=== PATIENT | male | born 1980 | race African-American/Black ===

== ENCOUNTER 2021-12-03 17:33 | Inpatient (IN) | payer MEDICAID ==
[~2021-12-03] VITALS: Ht 172.7 cm; Wt 72.6 kg
[2021-12-03] MEDS ORDERED: ASPI81TA31 PO (18:10)
[2021-12-03] MEDS ORDERED: ATOR40TA PO (18:10)
[2021-12-03] MEDS ORDERED: ASPIRIN 81 MG TAB.CHEW PO ONE (18:30)
[2021-12-03] MEDS ORDERED: ASPIRIN 81 MG TAB.CHEW ONE (18:34)
--- NOTE | 2021-12-03 18:34 | NUR ---
seen by Dr. Snyder and evaluated.
[2021-12-03 18:54] LABS: HEMATOCRIT 37.2 % (36.7-47.1); MEAN CORPUSCULAR HEMOGLOBIN 30.8 uug (23.8-33.4); MEAN CORPUSCULAR VOLUME 91.8 fL (73.0-96.2); PLATELET COUNT (AUTO) 171 K/uL (152-348)
[2021-12-03 19:14] LABS: CREATININE 1.2 mg/dL (0.6-1.3); POTASSIUM 3.9 mmol/L (3.5-5.1)
[2021-12-03 19:26] LABS: BILIRUBIN,TOTAL 0.4 mg/dL (0.2-1.0)
--- NOTE | 2021-12-03 19:34 | NUR ---
DR. Bennett was in to see the pt. pt denies c/p at this time.
[2021-12-03 19:48] LABS: BAND % (MANUAL) 2 % (0-10); EOSINOPHILS % (MANUAL) 4 % (0-8); LYMPHOCYTES % (MANUAL) 26 % (20-40); MONOCYTES % (MANUAL) 8 % (2-10); NEUTROPHILS % (MANUAL) 60 % (42-75)
--- NOTE | 2021-12-03 20:27 | NUR ---
pt go to cat scan.
--- NOTE | 2021-12-03 20:38 | NUR ---
pt returned from cat scan.
--- NOTE | 2021-12-03 22:22 | NUR ---
pt ambulated to the bathroom without assist. pt denies sob or pain.
--- NOTE | 2021-12-04 00:23 | NUR ---
call to [facility] panel Prem Hobson NP.
--- NOTE | 2021-12-04 00:49 | NUR ---
second call to epic panel dr. tolbert.
--- NOTE | 2021-12-04 01:00 | NUR ---
mary tolbert called back for admission.
[2021-12-04] MEDS ORDERED: ENOXAPARIN SODIUM 40 MG/0.4 ML DISP.SYRIN SQ SCH (01:15)
[2021-12-04] MEDS ORDERED: ACETAMINOPHEN 325 MG TABLET PO PRN (01:15)
[2021-12-04] MEDS ORDERED: MAGNESIUM HYDROXIDE 30 ML LIQUID UDC PO PRN (01:15)
[2021-12-04] MEDS ORDERED: NITROGLYCERIN 0.4 MG/TAB BOTTLE SL ONE (01:15)
[2021-12-04] MEDS ORDERED: MORPHINE SULFATE 2 MG/1 ML DISP.SYRIN IV PRN (01:15)
[2021-12-04] MEDS ORDERED: ONDANSETRON 4 MG/2 ML VIAL IV PRN (01:15)
[2021-12-04] MEDS ORDERED: REMEDY ESSENTIAL ZINC PASTE 113 GM TP PRN (01:15)
[2021-12-04] MEDS ORDERED: ENOXAPARIN SODIUM 40 MG/0.4 ML DISP.SYRIN SQ ONE (01:43)
[2021-12-04] MEDS ORDERED: PANTOPRAZOLE SODIUM 40 MG TABLET.DR PO ONE (05:55)
[2021-12-04] MEDS ORDERED: PANTOPRAZOLE SODIUM 40 MG TABLET.DR PO SCH (07:00)
[2021-12-04 08:03] LABS: HEMATOCRIT 38.1 % (36.7-47.1); MEAN CORPUSCULAR VOLUME 91.1 fL (73.0-96.2); PLATELET COUNT (AUTO) 173 K/uL (152-348)
[2021-12-04 08:05] LABS: BILIRUBIN,TOTAL 0.8 mg/dL (0.2-1.0); CREATININE 1.3 mg/dL (0.6-1.3); POTASSIUM 3.7 mmol/L (3.5-5.1)
[2021-12-04 08:19] LABS: MAGNESIUM 1.9 mg/dL (1.8-2.4)
[2021-12-04] MEDS ORDERED: ASPIRIN 81 MG TAB.CHEW ONE (08:50)
[2021-12-04] MEDS ORDERED: ASPIRIN 81 MG TAB.CHEW PO SCH (09:00)
--- NOTE | 2021-12-04 12:35 | NUR ---
Note vera in EDM - 12/04/21 at 1340 by RENU Discharged by Ms. Flakito NP. Left ER at 1230, in stable condition.
--- NOTE | 2021-12-04 13:14 | NUR ---
DR FARLEY IN TO SEE PATIENT. DISCHARGE INSTRUCTIONS OBTAINED. SALINE LOCK ON RT FOREARM DCD.
[2021-12-04 18:22] VITALS: BP 134/78
[2021-12-04] MEDS ORDERED: ATORVASTATIN 40 MG TABLET PO SCH (21:00)
== END 2021-12-04 13:30 | disposition home or self-care (01) | DRG 137 ==
LOC: ER 17:37 → TRANSITION 12-04 01:03
PROVIDERS: ADMIT Internal Medicine; ATTEND Internal Medicine
DX: U07.1 COVID-19 (principal); E78.5 Hyperlipidemia, unspecified; R07.81 Pleurodynia; I25.10 Atherosclerotic heart disease of native coronary artery without angina pectoris; I25.2 Old myocardial infarction; Z98.61 Coronary angioplasty status; R05.9 Cough, unspecified
CPT/HCPCS: 36415; 70030-TC; 71045; 71250; 83605; 83615; 83735; 84484; 85025; 86140; 87040; 87400; 93005; A4663; G0378; J1650